=== PATIENT | male | born 1995 | race Hispanic/Latino ===

== ENCOUNTER 2022-07-30 09:31 | Emergency (ER) | payer SELFPAY ==
[~2022-07-30] VITALS: Ht 162.6 cm; Wt 79.4 kg
[2022-07-30 09:40] VITALS: O2SAT 99
[2022-07-30] MEDS ORDERED: AMOXICILLIN500 MG PO (10:24)
[2022-07-30] MEDS ORDERED: CLINDAMYCIN HC150 MG PO (10:24)
== END 2022-07-30 10:39 | disposition home or self-care (01) ==
LOC: ER 09:48
DX: K05.10 Chronic gingivitis, plaque induced (principal); K13.0 Diseases of lips
CPT/HCPCS: 99283